=== PATIENT | female | born 1955 | race Caucasian/White ===

== ENCOUNTER 2022-11-26 21:23 | Emergency (ER) | payer MEDICARE, OTHER ==
[2022-11-26] MEDS ORDERED: Sodium Chloride 0.9% 10 ML Syringe FLUSH PRN (21:29)
[2022-11-26] MEDS ORDERED: Sodium Chloride 0.9% 2.5 ML Syringe FLUSH PRN (21:29)
[2022-11-26] MEDS ORDERED: Aspirin 81 MG Tab.Chew PO ONE (21:49)
[2022-11-26] MEDS ORDERED: Ondansetron 4 MG/2 ML SDV IVPUSH ONE (21:50)
[2022-11-26 21:54] LABS: BASOPHILS PERCENT AUTO 0.4 % (0.0-1.5); EOSINOPHILS ABSOLUTE AUTO 0.2 K/uL (0.0-0.7); EOSINOPHILS PERCENT AUTO 2.1 % (0.0-7.0); HEMATOCRIT 38.6 % (36.0-46.0); HEMOGLOBIN 12.7 g/dL (12.0-16.0); LYMPHOCYTES ABSOLUTE AUTO 3.6 K/uL (0.6-2.4); LYMPHOCYTES PERCENT AUTO 43.7 % (16.0-40.0); MEAN CORPUSCULAR HEMOGLOBIN 26.1 pg (27.0-32.0); MEAN CORPUSCULAR HGB CONC 32.9 g/dL (31.0-37.0); MEAN CORPUSCULAR VOLUME 79.4 fL (80.0-98.0); MONOCYTES ABSOLUTE AUTO 0.6 K/uL (0.0-0.8); MONOCYTES PERCENT AUTO 6.8 % (0.0-15.0); NEUTROPHILS ABSOLUTE AUTO 3.9 K/uL (1.4-5.7); NRBC ABSOLUTE 0 K/uL; PLATELET COUNT,PLT 223 K/uL (150-400); RED BLOOD CELL COUNT 4.86 M/uL (4.30-5.90); WHITE BLOOD CELL COUNT,WBC 8.21 K/uL (4.0-11.0)
[2022-11-26 22:08] LABS: INR 1.05 (0.86-1.11)
[2022-11-26 22:13] LABS: A/G RATIO 0.9 (0.9-1.6); ALBUMIN 3.4 g/dL (3.4-5.0); CALCIUM 9.2 mg/dL (8.5-10.1); CARBON DIOXIDE,CO2 24.8 mmol/L (21.0-32.0); CREATININE 0.9 mg/dL (0.6-1.0); EST CRCL DRUG DOSING (CG) 57.56 mL/min; POTASSIUM,K 3.6 mmol/L (3.5-5.1); PROTEIN TOTAL,TP 7.4 g/dL (6.4-8.2)
[2022-11-26 22:18] LABS: MAGNESIUM 1.7 mg/dL (1.8-2.4)
[2022-11-26] MEDS ORDERED: Iopamidol 755 MG/ML 500 ML Multipack Bottle IVPUSH ONE (22:54)
[2022-11-27] MEDS ORDERED: Heparin Sodium 5,000 Units/ML Vial IVPUSH ONE (04:10)
[2022-11-27] MEDS ORDERED: Heparin Sodium/0.45% NaCl 500 ML IV SCH (04:15)
== END 2022-11-27 05:29 ==
LOC: MW.ED 21:23
DX: I21.4 Non-ST elevation (NSTEMI) myocardial infarction (principal); I10 Essential (primary) hypertension; E78.5 Hyperlipidemia, unspecified; E11.9 Type 2 diabetes mellitus without complications; Z79.899 Other long term (current) drug therapy
CPT/HCPCS: 36415; 71045; 71275; 74175; 80053; 83735; 84484; 85025; 85610; 85730; 93005; 96365; 96375; 99285; A9270; J1644; J2405; J3490; Q9967; 93010; 99291

== ENCOUNTER 2023-09-01 06:37 | Day surgery (SDC) | payer MEDICARE, OTHER ==
[2023-09-01] MEDS: Lactated Ringers 1,000 ML IV SCH (07:06)
[2023-09-01 07:09] LABS: GLUCOSE,POC 113 mg/dL (70-99)
[2023-09-01] MEDS ORDERED: propofoL 50 ML ONE (07:37)
[2023-09-01] MEDS ORDERED: Lactated Ringers 1,000 ML IV SCH (09:00)
[2023-09-01 09:10] VITALS: BP 118/58; PULSE 51
== END 2023-09-01 09:40 | disposition home or self-care (01) ==
LOC: MW.SDS 06:37
PROVIDERS: ATTEND Surgery
DX: R19.4 Change in bowel habit (principal); E11.9 Type 2 diabetes mellitus without complications; I10 Essential (primary) hypertension; Z79.899 Other long term (current) drug therapy; Z91.040 Latex allergy status
CPT/HCPCS: 82947; J2704; J7120

== ENCOUNTER 2023-12-30 12:13 | Emergency (ER) | payer MEDICARE, OTHER ==
[2023-12-30] MEDS: Acetaminophen 500 MG Tab PO ONE (13:05)
[2023-12-30] MEDS: Bacitracin Oint 1 GM U/D Packet TOP ONE (13:07)
[2023-12-30] MEDS: Diphtheria,Pertussis(Acell),Tetanus Vaccine 0.5 ML Syringe IM ONE (14:18)
== END 2023-12-30 14:27 | disposition home or self-care (01) ==
LOC: MW.ED 12:13
DX: S02.2XXA Fracture of nasal bones, initial encounter for closed fracture (principal); S09.90XA Unspecified injury of head, initial encounter; Z23 Encounter for immunization; I10 Essential (primary) hypertension; E78.00 Pure hypercholesterolemia, unspecified; E66.9 Obesity, unspecified; E11.9 Type 2 diabetes mellitus without complications; Z68.38 Body mass index [BMI] 38.0-38.9, adult; Z75.8 Other problems related to medical facilities and other health care; Z91.040 Latex allergy status; Z79.899 Other long term (current) drug therapy; Z90.710 Acquired absence of both cervix and uterus; W01.0XXA Fall on same level from slipping, tripping and stumbling without subsequent striking against object, initial encounter
CPT/HCPCS: 70450; 70486; 90471; 90715; 99283; A9270